=== PATIENT | female | born 2000 | race Two or more races ===

== ENCOUNTER 2024-05-25 17:28 | Emergency (ER) | payer OTHER ==
[~2024-05-25] VITALS: Ht 167.6 cm; Wt 117.9 kg
[2024-05-25] MEDS ORDERED: ABILIFY10 MG PO (18:10)
[2024-05-25] MEDS ORDERED: [UNRECOGNIZED DRUG - OTHER] (18:10)
[2024-05-25] MEDS ORDERED: RESTORIL30 M1 PO (18:10)
[2024-05-25] MEDS ORDERED: LEXAPRO5 MG (18:10)
[2024-05-25 18:11] VITALS: BP 98/70; O2SAT 99
[2024-05-25] MEDS ORDERED: FAMOTIDINE/PF 20 MG/2 ML VIAL IV PUSH ONE (19:00)
[2024-05-25] MEDS ORDERED: FAMOTIDINE/PF 20 MG/2 ML VIAL ONE (19:04)
[2024-05-25 19:38] LABS: HEMATOCRIT 37.6 % (36.0-45.00); MEAN CELL VOLUME 80.6 fL (80.00-100.00); MEAN CORPUSCULAR HEMOGLOBIN 27.8 pg (27.00-32.0); MEAN CORPUSCULAR HGB CONC 34.5 g/dl (32.0-36.0); PLATELET COUNT 286 K/uL (150-450); RED BLOOD COUNT 4.66 M/uL (4.00-6.00); RED CELL DISTRIBUTION WIDTH 13.9 % (11.5-14.5)
[2024-05-25 20:06] LABS: CALCIUM 9.5 mg/dL (8.5-10.1); CREATININE SERUM 0.62 mg/dL (0.55-1.02); GFR 121.51; POTASSIUM 3.55 mEq/L (3.5-5.1)
[2024-05-25 21:07] LABS: PH,URINE 5.5 (5.0-8.0); URINE APPEARANCE Clear; URINE BILIRRUBIN Negative (NEGATIVE); URINE BLOOD Negative; URINE COLOR Yellow; URINE GLUCOSE Negative (NEGATIVE); URINE KETONE Negative (NEGATIVE); URINE LEUKOCYTE Negative; URINE NITRATE Negative; URINE PROTEIN Negative (NEGATIVE)
[2024-05-25 21:11] LABS: URINE BACTERIA 5280.3 uL (0.0-1933); URINE EPITHELIAL CELLS 35.3 uL (0.0-38.8); URINE WBC 76.1 uL (0.0-23.2)
[2024-05-25 21:49] LABS: URINE CAST 0.58 uL (0.0-1.40)
[2024-05-25] MEDS ORDERED: MACROBID 100 M100 MG PO (22:07)
[2024-05-25] MEDS ORDERED: PEPCID AC20 MG PO (22:07)
[2024-05-25] MEDS ORDERED: INTESTINEX680 M2 PO (22:07)
[2024-05-25] MEDS ORDERED: METAMUCIL POWD575 G1 PO (22:07)
[2024-05-25] MEDS ORDERED: PYRIDIUM DS200 MG PO (22:07)
[2024-05-28] MEDS ORDERED: BACTRIM DS TAB1 EACH PO (11:13)
[2024-05-28] MEDS ORDERED: ZOFRAN8 MG PO (11:13)
[2024-05-28] MEDS ORDERED: PEPCID AC20 MG PO (11:13)
[2024-05-28] MEDS ORDERED: PYRIDIUM DS200 MG PO (11:13)
== END 2024-05-25 22:34 | disposition home or self-care (01) ==
LOC: ER 17:30
PROVIDERS: General Practice
DX: K59.00 Constipation, unspecified (principal)

== ENCOUNTER → 2024-05-28 | Emergency (ER) | payer OTHER ==
[~2024-05-28] VITALS: Ht 167.6 cm; Wt 117.9 kg
[~2024-05-28] MED LIST: ABILIFY10 MG PO; BACTRIM DS TAB1 EACH PO; CEFTRIAXONE SODIUM 1,000 MG VIAL IM ONE; CEFTRIAXONE SODIUM 1,000 MG VIAL ONE; FAMOtidine 10 MG/ML (4ML VIAL) IV PUSH ONE; INTESTINEX680 M2 PO; LEXAPRO5 MG; LIDOCAINE HCL 1% 10ML VIAL ONE; MACROBID 100 M100 MG PO; METAMUCIL POWD575 G1 PO; ONDANSETRON 4 MG TAB.RAPDIS PO ONE; ONDANSETRON HCL 2 MG/ML VIAL IM ONE; PEPCID AC20 MG PO; PYRIDIUM DS200 MG PO; RESTORIL30 M1 PO; ZOFRAN8 MG PO; [UNRECOGNIZED DRUG - OTHER]
[2024-05-28 09:34] LABS: HEMATOCRIT 38.1 % (36.0-45.00); HEMOGLOBIN 13.3 g/dL (12.0-15.00); MEAN CELL VOLUME 80.5 fL (80.00-100.00); MEAN CORPUSCULAR HEMOGLOBIN 28.1 pg (27.00-32.0); MEAN CORPUSCULAR HGB CONC 34.9 g/dl (32.0-36.0); PLATELET COUNT 234 K/uL (150-450); RED BLOOD COUNT 4.74 M/uL (4.00-6.00)
[2024-05-28 10:02] LABS: PH,URINE 5.5 (5.0-8.0); URINE APPEARANCE Clear; URINE BILIRRUBIN Small (NEGATIVE); URINE BLOOD Negative; URINE COLOR Orange; URINE GLUCOSE Negative (NEGATIVE); URINE LEUKOCYTE Small; URINE NITRATE Positive; URINE PROTEIN 30 (NEGATIVE)
[2024-05-28 10:04] LABS: URINE BACTERIA 1418.5 uL (0.0-1933); URINE EPITHELIAL CELLS 27.3 uL (0.0-38.8); URINE RBC 19.8 uL (0.0-20.8); URINE WBC 5.6 uL (0.0-23.2)
[2024-05-28 11:07] LABS: URINE CAST 0.14 uL (0.0-1.40); URINE KETONE 40 (NEGATIVE)
== END | disposition home or self-care (01) ==
LOC: ER 07:10
PROVIDERS: General Practice
DX: N39.0 Urinary tract infection, site not specified (principal); Z20.822 Contact with and (suspected) exposure to COVID-19